=== PATIENT | female | born 2005 | race Caucasian/White ===

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

== ENCOUNTER 2024-03-20 01:09 | Emergency (ER) | payer OTHER ==
[~2024-03-20] VITALS: Ht 172.7 cm; Wt 64.1 kg
[2024-03-20] MEDS ORDERED: IBUPROFEN 600 MG TAB PO ONE (01:30)
[2024-03-20 03:09] VITALS: BP 125/75
== END 2024-03-20 03:11 | disposition home or self-care (01) ==
LOC: ED 01:09
DX: S93.401A Sprain of unspecified ligament of right ankle, initial encounter (principal); X50.1XXA Overexertion from prolonged static or awkward postures, initial encounter; Z88.8 Allergy status to other drugs, medicaments and biological substances; Z79.899 Other long term (current) drug therapy
CPT/HCPCS: 73610; 99283; A9270